=== PATIENT | female | born 1950 | race Caucasian/White ===

== ENCOUNTER 2016-08-09 16:44 | Observation (INO) | payer OTHER, MEDICARE ==
[2016-08-09 16:55] VITALS: BMI 30.9
--- NOTE | 2016-08-09 17:11 | PDOC ---
History of Present Illness - General History Source: Patient Exam Limitations: No Limitations <Sakshi Mora - Last Filed: 08/09/16 18:43> - General History Source: Patient Exam Limitations: No Limitations <Nishi Luna - Last Filed: 08/09/16 18:46> - General Chief Complaint: Chest Pain Stated Complaint: CHEST PAIN Time Seen by Provider: 08/09/16 16:50 - History of Present Illness Initial Comments: 08/09/16 17:49 The patient is a 66 year old female, with significant past medical history of hypothyroidism, mitral valve prolapse, HTN, HLD, bruised ribs (1 month ago) who presents today complaining of 4 days of chest tightness, 6/10 in severity. She notes that she is experiencing left shoulder pain, but is unsure if it is associated with the chest pain or because she had a recent bone spur removal from the left shoulder. She states that she is feeling restless, but more tired than usual. The patient notes that Dr. Lezama increased her thyroid medication last week. Denies shortness of breath and palpitations. Denies abdominal pain. Denies fever, chills, nausea, vomiting. Denies lightheadedness, palpitations, SOB. Allergies:Penicillin, latex Surgical Hx: appendectomy (2016), left shoulder bone spur removal Social Hx: no tobacco use. PCP- Dr. Lezama (Nishi Luna) Past History - Past Medical History Cardiac Disorders: Yes (MVP) GI Disorders: Yes HTN: Yes Hypercholesterolemia: Yes Thyroid Disease: Yes (HYPO) - Surgical History Appendectomy: Yes - Psycho/Social/Smoking Cessation Hx Anxiety: No Suicidal Ideation: No Smoking History: Never smoked Have you smoked in the past 12 months: No Information on smoking cessation initiated: No Hx Alcohol Use: No Drug/Substance Use Hx: No Substance Use Type: None Hx Substance Use Treatment: No <Sakshi Mora - Last Filed: 08/09/16 18:43> <Nishi Luna - Last Filed: 08/09/16 18:46> - Past Medical History Allergies/Adverse Reactions: Allergies Allergy/AdvReac Type Severity Reaction Status Date / Time Penicillins Allergy Severe Verified 08/09/16 16:45 latex Allergy Verified 08/09/16 16:45 poison tasha extract Allergy Verified 08/09/16 16:45 [Poison Tasha Extract] Home Medications: Ambulatory Orders Butalb/Acetaminophen/Caffeine [Fioricet 50-325-40 Mg Tablet] 1 each PO PRN PRN tablet 11/11/12 Levothyroxine [Synthroid -] 175 mcg PO DAILY 08/09/16 Metoprolol Succinate [Toprol Xl] 50 mg PO DAILY 08/09/16 Review of Systems <Sakshi Mora - Last Filed: 08/09/16 18:43> - Review of Systems Able to Perform ROS?: Yes <Nishi Luna - Last Filed: 08/09/16 18:46> - Review of Systems Comments:: 08/09/16 17:49 GENERAL/CONSTITUTIONAL: No: fever, chills, weakness, loss of appetite. HEAD, EYES, EARS, NOSE AND THROAT: No: change in vision, ear pain, discharge, sore throat, throat swelling. CARDIOVASCULAR: Yes: chest tightness No: lightheadedness, palpitations, syncope RESPIRATORY: No: cough, shortness of breath, wheezing, hemoptysis, stridor. GASTROINTESTINAL: No: nausea, vomiting, abdominal cramping, diarrhea, rectal bleeding, constipation. GENITOURINARY: No: dysuria, hematuria, frequency, urgency, flank pain. MUSCULOSKELETAL: Yes: left shoulder pain. No: back pain, neck pain, joint pain, muscle swelling or pain SKIN: No: lesions, pallor, rash or easy bruising. NEUROLOGIC: No: headache, vertigo, paresthesias, weakness ENDOCRINE: No: unexplained weight gain or loss HEMATOLOGIC/LYMPHATIC: No: anemia, easy bleeding, swelling nodes (Nishi Luna) *Physical Exam <Sakshi Mora - Last Filed: 08/09/16 18:43> <Nishi Luna - Last Filed: 08/09/16 18:46> - Vital Signs Last Vital Signs Temp Pulse Resp BP Pulse Ox 98.2 F 78 18 140/90 99 08/09/16 16:44 08/09/16 16:44 08/09/16 16:44 08/09/16 16:44 08/09/16 16:44 - Physical Exam Comments: 08/09/16 17:49 GENERAL: The patient is in no acute distress. HEAD: Normal with no signs of trauma. EYES: PERRLA, EOMI, sclera anicteric, conjunctiva clear. ENT: Ears normal, nares patent, oropharynx clear without exudates. Moist mucous membranes. NECK: Normal range of motion, supple without lymphadenopathy, JVD, or masses. LUNGS: Breath sounds equal, clear to auscultation bilaterally. No wheezes, and no crackles. HEART:Regular rate and rhythm, normal S1 and S2 without murmur, rub or gallop. ABDOMEN: Soft, nontender, normoactive bowel sounds. No guarding, no rebound. EXTREMITIES: Normal range of motion, no edema. No clubbing or cyanosis. No erythema, or tenderness. NEUROLOGICAL: Cranial nerves II through XII grossly intact. Normal speech. No focal neurological deficits. MUSCULOSKELETAL: Back nontender to palpation, no CVA tenderness SKIN: Warm, Dry, normal turgor, no rashes or lesions noted. (Nishi Luna) Heart Score/ECG Review #1 ECG reviewed & interpreted by me at: 17:12 <Sakshi Mora - Last Filed: 08/09/16 18:43> <Nishi Luna - Last Filed: 08/09/16 18:46> #1 08/09/16 17:12 Twelve-lead EKG was performed and reviewed by me. There is normal sinus rhythm with a normal rate of 74 bpm. The axis is normal. The intervals are normal - pr: 160ms, QRS:80ms, QTc:430ms. There are no ST elevations or depressions. T wave inversions v1-v5 (seen on old EKG) (Sakshi Mora) ED Treatment Course - LABORATORY CBC & Chemistry Diagram: 08/09/16 17:37 08/09/16 17:37 <Sakshi Mora - Last Filed: 08/09/16 18:43> - LABORATORY CBC & Chemistry Diagram: 08/09/16 17:37 08/09/16 17:37 <Nishi Luna - Last Filed: 08/09/16 18:46> - ADDITIONAL ORDERS Additional order review: Laboratory Results 08/09/161808/09/16 17:37 17:37 17:37 INR 0.99 Sodium 132 L Potassium 4.1 Chloride 100 Carbon Dioxide 22 Anion Gap 10 BUN 19 H D Creatinine 1.1 D Creat Clearance w eGFR 49.39 Random Glucose 97 Calcium 9.1 Magnesium 1.9 Total Bilirubin 0.6 D AST 25 ALT 22 Alkaline Phosphatase 60 Creatine Kinase 110 Total Protein 6.7 Albumin 4.4 08/09/16 17:37 RBC 4.27 MCV 96.4 H MCHC 34.3 RDW 12.1 MPV 9.1 Neutrophils % 70.4 D Lymphocytes % 18.6 D Monocytes % 6.1 Eosinophils % 1.2 Basophils % 3.7 H - RADIOLOGY Radiograph Interpretation: 08/09/16 18:46 EXAM#: TYPE/EXAM: RESULT: [id number] RAD/CHEST X-RAY PORTABLE* HISTORY PROVIDED: Chest pain. A single frontal portable projection of the chest at 5:48 PM is submitted. The heart size is within normal limits. The lung gill are free of pulmonary infiltrates or pleural effusions. IMPRESSION: No acute disease. Reported By: Haryr Rosales MD 08/09/16 1842 (Nishi Luna) Medical Decision Making <Sakshi Mora - Last Filed: 08/09/16 18:43> <Nishi Luna - Last Filed: 08/09/16 18:46> - Medical Decision Making 08/09/16 17:11 A portion of this note was documented by scribe services under my direction. I have reviewed the details of the note, within reason, and agree with the documentation with the following case summary and management plan written by me. Nursing documentation reviewed and incorporated into medical decision making 08/09/16 18:43 This is a 66-year-old female with a history of hypertension, hyperlipidemia, hypothyroidism who presents emergency department with a complaint of chest tightness which has been present for several days. Mild shortness of breath. Patient sure if her symptoms radiates to her shoulder. Patient denies radiation to jaw or back. Patient has no prior symptoms like this. Last stress test was approximately 15 years ago. No prior NC or cardiac catheter. no cough, no rhinorrhea, congestion. Differential includes cardiac ischemia, pe, asthma exacerbation, pneumonia, pneumothorax, pleural effusion, costochondritis, pericarditis, GERD. 08/09/16 18:43 Laboratory Tests 08/09/16 08/09/16 08/09/16 17:37 17:37 17:37 WBC 9.1 D Hgb 14.1 Hct 41.1 Plt Count 234 Neutrophils % 70.4 D Lymphocytes % 18.6 D INR 0.99 BUN 19 H D Creatinine 1.1 D Creatine Kinase 08/09/16 17:37 WBC Hgb Hct Plt Count Neutrophils % Lymphocytes % INR BUN Creatinine Creatine Kinase 110 Text page to hospitalist Will place on observation Pt states she feels better 08/09/16 18:44 (Sakshi Mora) *DC/Admit/Observation/Transfer - Discharge Dispostion Admit: Yes <Sakshi Mora - Last Filed: 08/09/16 18:43> <Nishi Luna - Last Filed: 08/09/16 18:46> Diagnosis at time of Disposition: Chest pain Qualifiers: Chest pain type: unspecified Qualified Code(s): R07.9 - Chest pain, unspecified - Discharge Dispostion Condition at time of disposition: Stable - Attestations Scribe Attestion: 08/09/16 17:50 Documentation prepared by JUANITO Hansen, acting as spanish medical interpreter for Sakshi Mora MD. (Nishi Luna)
[2016-08-09 17:48] LABS: BASOPHIL 3.7 % (0-2.0); EOSINOPHIL 1.2 % (0-4.5); MCH 33.1 pg (25.7-33.7); MCHC 34.3 g/dl (32.0-36.0); MEAN CELL VOLUME 96.4 fl (80-96); MEAN PLT VOLUME 9.1 fl (7.5-11.1); NEUTROPHILS 70.4 % (42.8-82.8); PLATELET COUNT 234 K/MM3 (134-434); RDW 12.1 % (11.6-15.6); WHITE BLOOD COUNT 9.1 K/mm3 (4.0-10.8)
[2016-08-09 18:13] LABS: INR 0.99 (0.82-1.09); PROTHROMBIN TIME (PATIENT) 11.1 SEC (10.2-13.0)
[2016-08-09 18:19] LABS: ALBUMIN 4.4 g/dl (3.5-5.0); ALK PHOS 60 U/L (32-92); ANION GAP 10 (8-16); BILIRUBIN,TOTAL 0.6 mg/dl (0.2-1.0); CALCIUM 9.1 mg/dl (8.4-10.2); CO2 22 mmol/L (22-28); CPK(DFH) 110 IU/L (26-140); CREATININE 1.1 mg/dl (0.6-1.3); GLUCOSE,RANDOM 97 mg/dl (74-106); MAGNESIUM 1.9 mg/dL (1.8-2.4); SGOT/AST 25 U/L (10-42); SGPT/ALT 22 U/L (10-40); TOT PROT 6.7 g/dl (6.4-8.3)
[2016-08-09 18:24] LABS: COCKROFT - GAULT NT
[2016-08-09] MEDS ORDERED: ASPIRIN 81 MG CHEWABLE TABLETS PO ONE (18:44)
[2016-08-09] MEDS ORDERED: ASPIRIN 81 MG CHEWABLE TABLETS ONE (18:50)
[2016-08-09 18:52] LABS: TROPONIN I (DFP) < 0.03 ng/ml (0.03-0.50)
--- NOTE | 2016-08-09 19:34 | HP ---
CHIEF COMPLAINT: Chest Tightness PCP: Dr. Lezama HISTORY OF PRESENT ILLNESS: This is a 66 y/o female with a PMHx of: HTN, HLD, MVP, Hypothyroid, Bruised Ribs (1 month ago). Who presents to the ED with chest tightness x 4 days. Patient reports increased fatigue over the last week, having her TSH level checked, 0.8 and her synthyroid was adjusted.. Patient reports the tightness as intermittent, non-radiating. Patient denies fever, chills, SOB, dizziness, AP, N /V/D, constipation, dysuria. 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 Family History: Father- Cancer Mother- HTN, OA Uncle- PA Allergies Penicillins Allergy (Severe, Verified 08/09/16 16:45) latex Allergy (Verified 08/09/16 16:45) poison tasha extract [Poison Tasha Extract] Allergy (Verified 08/09/16 16:45) HOME MEDICATIONS: Home Medications Medication Instructions Recorded Butalb/Acetaminophen/Caffeine 1 each PO PRN PRN tablet 11/11/12 [Fioricet 50-325-40 Mg Tablet] Levothyroxine [Synthroid -] 175 mcg PO DAILY 08/09/16 Metoprolol Succinate [Toprol Xl] 50 mg PO DAILY 08/09/16 REVIEW OF SYSTEMS CONSTITUTIONAL: fatigue Absent: fever, chills, diaphoresis, generalized weakness, malaise, loss of appetite, weight change HEENT: Absent: rhinorrhea, nasal congestion, throat pain, throat swelling, difficulty swallowing, mouth swelling, ear pain, eye pain, visual changes CARDIOVASCULAR: chest pain Absent: syncope, palpitations, irregular heart rate, lightheadedness, peripheral edema RESPIRATORY: Absent: cough, shortness of breath, dyspnea with exertion, orthopnea, wheezing, stridor, hemoptysis GASTROINTESTINAL: Absent: abdominal pain, abdominal distension, nausea, vomiting, diarrhea, constipation, melena, hematochezia GENITOURINARY: Absent: dysuria, frequency, urgency, hesitancy, hematuria, flank pain, genital pain MUSCULOSKELETAL: Absent: myalgia, arthralgia, joint swelling, back pain, neck pain SKIN: Absent: rash, itching, pallor HEMATOLOGIC/IMMUNOLOGIC: Absent: easy bleeding, easy bruising, lymphadenopathy, frequent infections ENDOCRINE: Absent: unexplained weight gain, unexplained weight loss, heat intolerance, cold intolerance NEUROLOGIC: Absent: headache, focal weakness or paresthesias, dizziness, unsteady gait, seizure, mental status changes, bladder or bowel incontinence PSYCHIATRIC: Absent: anxiety, depression, suicidal or homicidal ideation, hallucinations. PHYSICAL EXAMINATION Vital Signs - 24 hr 08/09/16 08/09/16 16:44 18:54 Temperature 98.2 F Pulse Rate 78 Pulse Rate [ 69 Apical] Respiratory 18 18 Rate Blood Pressure 140/90 Blood Pressure 121/75 [Arm] O2 Sat by Pulse 99 100 Oximetry (%) GENERAL: Awake, alert, and fully oriented, in no acute distress. HEAD: Normal with no signs of trauma. EYES: Pupils equal, round and reactive to light, extraocular movements intact, sclera anicteric, conjunctiva clear. No lid lag. EARS, NOSE, THROAT: Ears normal, nares patent, oropharynx clear without exudates. Moist mucous membranes. NECK: Normal range of motion, supple without lymphadenopathy, JVD, or masses. LUNGS: Breath sounds equal, clear to auscultation bilaterally. No wheezes, and no crackles. No accessory muscle use. HEART: Regular rate and rhythm, normal S1 and S2 without murmur, rub or gallop. Chest reproducible LCW upon palpation ABDOMEN: Soft, nontender, not distended, normoactive bowel sounds, no guarding, no rebound, no masses. No hepatomegaly or splenomegaly. MUSCULOSKELETAL: Normal range of motion at all joints. No bony deformities or tenderness. No CVA tenderness. UPPER EXTREMITIES: 2+ pulses, warm, well-perfused. No cyanosis. No clubbing. No peripheral edema. LOWER EXTREMITIES: 2+ pulses, warm, well-perfused. No calf tenderness. No peripheral edema. NEUROLOGICAL: Cranial nerves II-XII intact. Normal speech. Normal gait. PSYCHIATRIC: Cooperative. Good eye contact. Appropriate mood and affect. SKIN: Warm, dry, normal turgor, no rashes or lesions noted, normal capillary refill. Laboratory Results - last 24 hr 08/09/16 08/09/16 08/09/16 17:37 17:37 17:37 WBC 9.1 D RBC 4.27 Hgb 14.1 Hct 41.1 MCV 96.4 H MCHC 34.3 RDW 12.1 Plt Count 234 MPV 9.1 Neutrophils % 70.4 D Lymphocytes % 18.6 D Monocytes % 6.1 Eosinophils % 1.2 Basophils % 3.7 H INR 0.99 Sodium 132 L Potassium 4.1 Chloride 100 Carbon Dioxide 22 Anion Gap 10 BUN 19 H D Creatinine 1.1 D Creat Clearance w eGFR 49.39 Random Glucose 97 Calcium 9.1 Magnesium 1.9 Total Bilirubin 0.6 D AST 25 ALT 22 Alkaline Phosphatase 60 Creatine Kinase Troponin I Total Protein 6.7 Albumin 4.4 08/09/16 17:37 WBC RBC Hgb Hct MCV MCHC RDW Plt Count MPV Neutrophils % Lymphocytes % Monocytes % Eosinophils % Basophils % INR Sodium Potassium Chloride Carbon Dioxide Anion Gap BUN Creatinine Creat Clearance w eGFR Random Glucose Calcium Magnesium Total Bilirubin AST ALT Alkaline Phosphatase Creatine Kinase 110 Troponin I < 0.03 L Total Protein Albumin ASSESSMENT/PLAN: This is a 66 y/o female with a PMHx of: HTN, HLD, MVP, Hypothyroid. Placed in Telemetry Observation for Chest Pain r/o ACS for further evaluation of their emergent condition. Plan: 1. Cardiac: Chest Pain//HTN//HLD//MVP - r/o ACS - Tele monitoring - HEART Score 4 - Serial Enzymes - Asa given in ED, will continue - Continue metoprolol - EKG reviewed - Chest Xray- no acute pathology - Echo in am - f/u with Cardiology in outpatient 2. Endo: Hypothyroid - TSH - Continue Synthroid 3. FEN - Tolerates PO Fluids - Replete lytes prn - Low Na Diet 4. DVT Prophylaxis - OOB - SCDs - Consider AC if LOS > 48hrs Code Status: Full Code Problem List - Problem (1) Chest pain Code(s): R07.9 - CHEST PAIN, UNSPECIFIED Qualifiers: Chest pain type: unspecified Qualified Code(s): R07.9 - Chest pain, unspecified (2) HTN (hypertension) Code(s): I10 - ESSENTIAL (PRIMARY) HYPERTENSION (3) HLD (hyperlipidemia) Code(s): E78.5 - HYPERLIPIDEMIA, UNSPECIFIED (4) DVT prophylaxis Code(s): [id number] - Visit type - Emergency Visit Emergency Visit: Yes ED Registration Date: 08/09/16 Care time: The patient presented to the Emergency Department on the above date and was hospitalized for further evaluation of their emergent condition. - New Patient This patient is new to me today: Yes Date on this admission: 08/09/16 - Critical Care Critical Care patient: No
[2016-08-09] MEDS ORDERED: ATORVASTATIN CA 20 MG TABLET (FP) PO SCH (22:30)
[2016-08-10 02:08] LABS: TROPONIN I < 0.02 ng/ml (0.00-0.05)
[2016-08-10] MEDS ORDERED: LEVOTHYROXINE NA 175 MCG TABLET PO SCH (07:00)
[2016-08-10 08:38] LABS: BASOPHIL 0.5 % (0-2.0); EOSINOPHIL 3.8 % (0-4.5); MCHC 34.2 g/dl (32.0-36.0); MEAN CELL VOLUME 96.5 fl (80-96); MEAN PLT VOLUME 9.7 fl (7.5-11.1); NEUTROPHILS 56.2 % (42.8-82.8); PLATELET COUNT 224 K/MM3 (134-434); RDW 12.4 % (11.6-15.6); WHITE BLOOD COUNT 5.6 K/mm3 (4.0-10.8)
[2016-08-10 08:50] LABS: ANION GAP 8 (8-16); CALCIUM 9.3 mg/dl (8.4-10.2); CHOLESTEROL 194 mg/dl; CO2 26 mmol/L (22-28); CREATININE 1.1 mg/dl (0.6-1.3); GLUCOSE,RANDOM 111 mg/dl (74-106); MAGNESIUM 2.2 mg/dL (1.8-2.4); PHOSPHOROUS 4.2 mg/dl (2.5-4.6)
[2016-08-10 09:12] LABS: TROPONIN I (DFP) < 0.03 ng/ml (0.03-0.50)
[2016-08-10 09:20] LABS: CPK(DFH) 83 IU/L (26-140)
[2016-08-10] MEDS ORDERED: ASPIRIN 81 MG CHEWABLE TABLETS PO SCH (10:00)
[2016-08-10] MEDS ORDERED: METOPROLOL SUCCINATE 50 MG TAB.SR.24H (FP) PO SCH (10:00)
--- NOTE | 2016-08-10 14:32 | PN ---
Physical Exam: SUBJECTIVE: Patient seen and examined, reports feeling well, denies any chest pressure, does reports dyspnea upon exertion. OBJECTIVE: patient is a 66 y/o female with a PMHx of: HTN, HLD, MVP, and Hypothyroid. patient was admitted from the emergency department to observation for chest pain r/o acs Vital Signs Period Temp Pulse Resp BP Sys/Singh Pulse Ox Last 24 Hr 98.3 F-98.6 F 65-93 18-19 102-112/57-66 96-99 GENERAL: The patient is awake, alert, and fully oriented, in no acute distress. HEAD: Normal with no signs of trauma. EYES: PERRL, extraocular movements intact, sclera anicteric, conjunctiva clear. No ptosis. ENT: Ears normal, nares patent, oropharynx clear without exudates, moist mucous membranes. NECK: Trachea midline, full range of motion, supple. LUNGS: Breath sounds equal, clear to auscultation bilaterally, no wheezes, no crackles, no accessory muscle use. HEART: Regular rate and rhythm, S1, S2, 3/6 systolic murmur, rub or gallop. ABDOMEN: Soft, nontender, nondistended, normoactive bowel sounds, no guarding, no rebound, no hepatosplenomegaly, no masses. EXTREMITIES: 2+ pulses, warm, well-perfused, no edema. NEUROLOGICAL: Cranial nerves II through XII grossly intact. Normal speech, gait not observed. PSYCH: Normal mood, normal affect. SKIN: Warm, dry, normal turgor, no rashes or lesions noted Laboratory Results - last 24 hr 08/10/16 08/10/16 08/10/16 00:00 07:25 07:25 WBC 5.6 D RBC 4.24 Hgb 14.0 Hct 41.0 MCV 96.5 H MCHC 34.2 RDW 12.4 Plt Count 224 MPV 9.7 Neutrophils % 56.2 D Lymphocytes % 30.2 D Monocytes % 9.3 Eosinophils % 3.8 D Basophils % 0.5 Sodium 139 Potassium 4.1 Chloride 105 Carbon Dioxide 26 Anion Gap 8 BUN 16 Creatinine 1.1 Random Glucose 111 H Calcium 9.3 Phosphorus 4.2 Magnesium 2.2 Creatine Kinase 102 Troponin I < 0.02 Triglycerides 158 D Cholesterol 194 Total LDL Cholesterol 94 HDL Cholesterol 68 08/10/16 07:25 WBC RBC Hgb Hct MCV MCHC RDW Plt Count MPV Neutrophils % Lymphocytes % Monocytes % Eosinophils % Basophils % Sodium Potassium Chloride Carbon Dioxide Anion Gap BUN Creatinine Random Glucose Calcium Phosphorus Magnesium Creatine Kinase 83 Troponin I < 0.03 L Triglycerides Cholesterol Total LDL Cholesterol HDL Cholesterol Active Medications Generic Name Dose Route Start Last Admin Trade Name Freq PRN Reason Stop Dose Admin Aspirin 81 mg 08/10/16 10:00 08/10/16 09:53 Asa - PO 81 mg DAILY KELLIE Administration Atorvastatin Calcium 20 mg 08/09/16 22:30 08/10/16 00:00 Lipitor - PO 20 mg HS KELLIE Administration Levothyroxine Sodium 75 mcg/ 175 mcg 08/11/16 07:00 Levothyroxine Sodium 100 mcg PO DAILY@0700 [facility] Metoprolol Succinate 50 mg 08/10/16 10:00 08/10/16 09:52 Toprol Xl - PO 50 mg DAILY KELLIE Administration ASSESSMENT/PLAN: 1). Cardiac: Chest Pain r/o acs - continous cardiac monitoring no dyarrhythmias noted - troponin x 3 wnl - pending ech - pt does reports dyspnea upon exertion and increased fatigue within the past month, appreciate cardiology input hypertension - continue toprol, b/p at goal hyperlipidemia - lipid panel wnl, continue lipitor 2. Endo: Hypothyroid - TSH pending - Continue Synthroid 3. FEN - Tolerates PO Fluids - Replete lytes prn - Low Na Diet 4. DVT Prophylaxis - OOB - SCDs - Consider AC if LOS > 48hrs Code Status: Full Code
[2016-08-10 14:36] VITALS: BP 93/63; PULSE 61; TEMP 98.1
--- NOTE | 2016-08-10 17:07 | CONSULT ---
Consult Consult Specialty:: Cardiology Referred by:: Marly Stanley NP - History of Present Illness Chief Complaint: Chest pain History of Present Illness: 66 yo female with hx of HTN, HLD, hypothyroidism, MVP, abnormal EKG at baseline -> stable over the years, stress test > 10 ya -> ok, hre with chest tightness at rest. Patient lost her mother 2 months ago. At around same time, she started having increasing fatigue. Also, she has been having pretty persistent abnormal " chest sensation" , worse at times -. the worse was yesterday while working in the [employer] ( [employer] in [place]. Symptoms are at rest, w/o real associated symptoms. She doesn't exercise. She gets palpitations at times, short-lived. She gets SOB with exertion Symptoms pretty much subsided spontaneously yesterday. However, she still feels her background abnormal chest feeling - History Source History Provided By: Patient - Past Medical History Cardio/Vascular: Yes: HTN, Hyperlipdemia, Other (MVP in past ) ...LMP Comment: 13 YEARS AGO ...: No Musculoskeletal: Yes: Osteoarthritis Endocrine: Yes: Hypothyroidism - Past Surgical History Past Surgical History: Yes: Appendectomy, Tonsillectomy Additional Surgical History: melanoma resection, left shoulder for spur - Alcohol/Substance Use Hx Alcohol Use: Yes (OCCASIONAL) - Smoking History Smoking history: Never smoked (but second hand smoking) Have you smoked in the past 12 months: No - Social History 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 Home Medications - Allergies Allergies/Adverse Reactions: Allergies Allergy/AdvReac Type Severity Reaction Status Date / Time Penicillins Allergy Severe Verified 08/09/16 16:45 latex Allergy Verified 08/09/16 16:45 poison tasha extract Allergy Verified 08/09/16 16:45 [Poison Tasha Extract] - Home Medications Home Medications: Ambulatory Orders Butalb/Acetaminophen/Caffeine [Fioricet 50-325-40 Mg Tablet] 1 each PO PRN PRN tablet 11/11/12 Levothyroxine [Synthroid -] 175 mcg PO DAILY 08/09/16 Metoprolol Succinate [Toprol Xl] 50 mg PO DAILY 08/09/16 Family Disease History - Family Disease History Family History: Denies (premature CAD) Review of Systems - Review of Systems Constitutional: reports: Other (fatigue) Eyes: reports: No Symptoms HENT: reports: No Symptoms Neck: reports: No Symptoms Cardiovascular: reports: Chest Pain (see HPI), Shortness of Breath (with stairs) Respiratory: reports: SOB on Exertion Gastrointestinal: reports: Diarrhea (long-standing, on and off) Musculoskeletal: reports: Joint Pain Neurological: reports: No Symptoms Hematology/Lymphatic: reports: No Symptoms Physical Exam Vital Signs: Vital Signs Temperature 98.1 F 08/10/16 14:35 Pulse Rate 61 08/10/16 14:35 Respiratory Rate 18 08/10/16 14:35 Blood Pressure 93/63 08/10/16 14:35 O2 Sat by Pulse Oximetry (%) 96 08/10/16 14:35 Constitutional: Yes: Obese Eyes: Yes: Conjunctiva Clear HENT: Yes: Atraumatic Neck: Yes: Supple Cardiovascular: Yes: Regular Rate and Rhythm. No: Murmur Respiratory: Yes: CTA Bilaterally Gastrointestinal: Yes: Normal Bowel Sounds, Soft, Abdomen, Obese. No: Tenderness Extremities: Yes: Other (warm) Edema: No Peripheral Pulses WNL: Yes Neurological: Yes: Alert, Oriented Psychiatric: Yes: Alert, Oriented Labs: CBC, BMP 08/10/16 07:25 08/10/16 07:25 Imaging - Results Chest X-ray: Report Reviewed, Image Reviewed EKG: Report Reviewed, Image Reviewed (ST, anterior TWI (stable from old EKG, )) Assessment/Plan 66 yo female with the above history, here with atypical chest pain. Her EKG is abnormal , but has been and is stable She has ruled out for an PR I wonder whether her symptoms are part of her mourning, as they started after her mom passed 2 months ago Echo is with nl EF, grade 2 DD and mild valvular dz However, because of risk factor, should get outpt stress test BP ok Lipids ok except for mildly elevated trigl Rec: Ok to d/c home from cardiac standpoint Follow on TSH Outpt nuclear (pt to call my office at [phone] In long run, exercise, diet and wt loss Thanks!
[2016-08-11] MEDS ORDERED: LEVOTHYROXINE 75 MCG, LEVOTHYROXINE 100 MCG PO SCH (07:00)
--- NOTE | 2016-08-11 16:17 | EKG ---
Test Reason : Blood Pressure : / mmHG Vent. Rate : 074 BPM Atrial Rate : 074 BPM P-R Int : 160 ms QRS Dur : 080 ms QT Int : 388 ms P-R-T Axes : 064 012 047 degrees QTc Int : 430 ms NORMAL SINUS RHYTHM NO PREVIOUS ECGS AVAILABLE Confirmed by MD RIAZ, NANCY ([id number]) on 08/11/2016 4:17:19 PM Referred By: DR HURLEY Confirmed By:NANCY MELLO MD
[2016-08-12 04:27] LABS: THYROID STIMULATING HORMONE 2.34 uIU/ml (0.358-3.74)
== END 2016-08-10 18:35 | disposition home or self-care (01) ==
LOC: FER 16:44 → FM/S 20:04
PROVIDERS: ADMIT Internal Medicine; ATTEND Nurse Practitioner Family
DX: R07.9 Chest pain, unspecified (principal); I10 Essential (primary) hypertension; E03.9 Hypothyroidism, unspecified; E78.5 Hyperlipidemia, unspecified; I34.1 Nonrheumatic mitral (valve) prolapse; Z88.0 Allergy status to penicillin; E66.9 Obesity, unspecified; Z68.30 Body mass index [BMI] 30.0-30.9, adult; Z91.040 Latex allergy status
CPT/HCPCS: 36415; 71010-TC; 80048; 80053; 80061; 82550; 83735; 84100; 84443; 84484; 85025; 85610; 86618; 93005; 93306-TC; 99285-25; G0378